=== PATIENT | male | born 1955 | race Caucasian/White ===

== ENCOUNTER 2022-11-19 16:43 | Outpatient (CLI) | payer MEDICARE, OTHER, SELFPAY ==
--- NOTE | ~2022-11-19 | MR_ITS ---
EXAMINATION: MR knee RT wo con DATE: 11/19/2022 17:22 INDICATION: Chronic right knee pain. TECHNIQUE: Magnetic resonance imaging (MRI) of the right knee was performed without intravenous contr ast. Sequences included axial PD-weighted FS FSE, coronal PD-weighted FSE and PD-weighted FS FSE, sag ittal PD-weighted FSE, and sagittal T2-weighted FS FSE. COMPARISON: None. FINDINGS: Medial compartment: There is a complex tear involving anterior horn, body, and posterior horn of medial meniscus. There i s full-thickness cartilage loss of tibial condyle involving the medial articular surface with mild ventura bchondral edema-like signal intensity. There is full-thickness cartilage loss of femoral condyle invo lving the central, medial, and posterior articular surface with cortical remodeling and extensive sub chondral edema-like marrow signal intensity. Osteophytes are noted. Lateral compartment: There is a radial tear of posterior root of lateral meniscus. There is partial-thickness cartilage lo ss of tibial condyle, deep at the central and posterior articular surface. There is shallow partial-t hickness cartilage loss of femoral condyle. Osteophytes are noted. Patellofemoral compartment: There is partial-thickness cartilage loss of patella, deep at the medial and lateral facets. There is shallow partial-thickness cartilage loss of trochlea. Osteophytes are noted. Ligaments and tendons: Anterior cruciate ligament is normal. There is thickening and increased signal involving posterior cr uciate ligament, consistent with partial tear. There are changes of prior sprains of medial collatera l ligament and fibular collateral ligament characterized by thickening and increased signal intensity proximally. There is mild patellar tendinopathy. Fluid: There is a large knee joint effusion. There is a large ruptured Saha's cyst. There is moderate prepa tellar and superficial infrapatellar bursitis. IMPRESSION: 1. Severe chondrosis of medial compartment and moderate chondrosis of lateral and patellofemoral comp artments. 2. Tears of medial and lateral menisci. 3. Large knee joint effusion. 4. Large ruptured Saha's cyst. 5. Partial tear of posterior cruciate ligament. Reviewed, dictated and finalized at location A. FIELD TECHNICIAN IMPRESSION: 1. Severe chondrosis of medial compartment and moderate chondrosis of lateral a nd patellofemoral compartments. 2. Tears of medial and lateral menisci. 3. Large knee joint effusion. 4. Large ruptured Saha's cyst. 5. Partial tear of posterior cruciate ligament.
== END 2022-11-19 16:44 | disposition home or self-care (01) ==
PROVIDERS: PCP Family Medicine; Visit Provider Orthopaedic Surgery
DX: M25.461 Effusion, right knee (principal); M71.21 Synovial cyst of popliteal space [Baker], right knee; S83.281A Other tear of lateral meniscus, current injury, right knee, initial encounter; S83.241A Other tear of medial meniscus, current injury, right knee, initial encounter; X58.XXXA Exposure to other specified factors, initial encounter
CPT/HCPCS: 73721